=== PATIENT | male | born 1950 | race Caucasian/White ===

== ENCOUNTER 2018-11-12 07:32 | Day surgery (SDC) | payer OTHER, MEDICAID, MEDICARE ==
[2018-11-12] MEDS: DICLOFENAC 0.1% 2.5 ML OPH OPER (08:08)
[2018-11-12] MEDS: TROPICAMIDE 1% 15 ML OPH OPER (08:08)
[2018-11-12] MEDS: PHENYLephrine 10% 5 ML OPH OPER (08:08)
[2018-11-12] MEDS: MOXIFLOXACIN 0.5% 3 ML OPH OPER (08:09)
[2018-11-12] MEDS ORDERED: HYDROmorphONE 1 MG/5 ML IV SYRINGE IV (08:30)
[2018-11-12] MEDS ORDERED: FENTAnyl 50 MCG/ML VIAL IV (08:30)
[2018-11-12] MEDS ORDERED: ONDANSETRON 4 MG INJ IV (08:30)
[2018-11-12] MEDS ORDERED: morphine 2 MG INJ IV (08:30)
[2018-11-12] MEDS ORDERED: LABETALOL HCL 20MG INJ IV (08:30)
[2018-11-12] MEDS ORDERED: OXYCODONE/ACETAMINOPHEN (5/325) TAB PO (08:30)
[2018-11-12] MEDS ORDERED: EPHEDrine 25 MG/5 ML SYG IV (08:30)
[2018-11-12] MEDS: LACTATED RINGER'S 1,000 ML IV (08:31)
[2018-11-12] MEDS ORDERED: CARBACHOL 0.01% 1.5 ML OPH INJ (08:49)
[2018-11-12] MEDS ORDERED: LIDOCAINE 1% (MPF) 5 ML VIAL (08:49)
[2018-11-12] MEDS ORDERED: EPINEPHrine 1 MG INJ (08:50)
[2018-11-12] MEDS ORDERED: TETRACAINE 0.5% 4 ML OPH (08:50)
[2018-11-12] MEDS: LIDOCAINE 1% (MPF) 5 ML VIAL INJ ×2 (09:00)
[2018-11-12] MEDS: CARBACHOL 0.01% 1.5 ML OPH INJ RIGHT EYE ×2 (09:12)
[2018-11-12] MEDS: SODIUM HYALURONATE 14 MG/ML SYG IO (09:12)
[2018-11-12] MEDS: TETRACAINE 0.5% 4 ML OPH RIGHT EYE ×2 (09:12)
[2018-11-12] MEDS ORDERED: MIDAZOLAM 1 MG/ML 2 ML INJ (09:19)
[2018-11-12] MEDS ORDERED: FENTAnyl 50 MCG/ML VIAL (09:19)
[2018-11-12] MEDS ORDERED: ONDANSETRON 4 MG INJ (09:42)
[2018-11-12] MEDS ORDERED: METOCLOPRAMIDE 10 MG INJ (09:42)
[2018-11-12] MEDS: TOBRAMYCIN/DEXAMETH 3.5 GM OPH OINT OPER (09:49)
[2018-11-12] MEDS ORDERED: TOBRAMYCIN/DEXAMETH 3.5 GM OPH OINT (09:59)
[2018-11-12] MEDS ORDERED: SODIUM HYALURONATE 14 MG/ML SYG (09:59)
[2018-11-12] MEDS ORDERED: ACETAZOLAMIDE 250 MG TAB (11:11)
[2018-11-12] MEDS: ACETAZOLAMIDE 250 MG TAB PO (11:29)
== END 2018-11-12 11:44 | disposition home or self-care (01) ==
LOC: SDS 07:32
DX: H25.11 Age-related nuclear cataract, right eye (principal); M10.9 Gout, unspecified
CPT/HCPCS: 66984